=== PATIENT | male | born 1990 | race Caucasian/White ===

== ENCOUNTER → 2025-07-14 11:14 | Outpatient (REF) | payer BC, SELFPAY | LOC: DHSLP 11:14 | PROVIDERS: ATTENDING PHYSICIAN Nurse Practitioner Adult Health; FAMILY PHYSICIAN Nurse Practitioner Adult Health | DX: G47.33 Obstructive sleep apnea (adult) (pediatric) (principal) | CPT/HCPCS: 95800 ==